=== PATIENT | male | born 1985 | race Caucasian/White ===

== ENCOUNTER 2022-05-01 06:30 | Day surgery (SDC) | payer BC, SELFPAY ==
[2022-04-29 14:32] VITALS: BMI 40.6
[2022-05-01 07:02] VITALS: BP 182/114; PULSE 73; RESP 16; TEMP 36.4; O2SAT 97
[2022-05-01] MEDS: sodium chloride 0.9% 1,000 ML 30 ML IV (07:17)
--- NOTE | 2022-05-01 08:24 | ANES.PREANE2 ---
Pre-Anesthetic Assessment Height/Weight: Height 1.83 m Weight 136.078 kg Temp Pulse Resp BP Pulse Ox 97.5 F L 73 16 182/114 97 05/01/22 07:02 05/01/22 07:02 05/01/22 07:02 05/01/22 07:02 05/01/22 07:02 Preop Diagnosis: diagnostic Operation Date: 05/01/22 08:15 Proposed Procedures p Colonoscopy 95628/k92.1(Not Applicable) - Talon Leigh MD Familial anesthetic complications: None Was Beta Galileo taken within 24 hours: N/A Was Clonidine taken within 24 hours: N/A Last intake: Intake Last Liquid Date 04/30/22 Last Liquid Time 21:00 Last Solid Date 04/29/22 Last Solid Time 18:00 Social Alcohol and Tobacco (chews) Exam alert, oriented x 3, clear to auscultation bilaterally and regular rate & rhythm Airway Submandibular: within normal limits Cervical ROM: within normal limits Mallampati: Class II Dentition: full Comments: Comments: Barker Metabolic Morbid Obesity Anesthetic Plan ASA status: 2 Anesthesia: MAC Medications/Allergies Home Medications Medication Instructions Recorded Confirmed Last Taken Type No Known Home Medications 06/01/21 04/29/22 Unknown History Allergies Allergy/AdvReac Type Severity Reaction Status Date / Time No Known Allergies Allergy Verified 03/15/22 11:29 Current Medications Generic Name Dose Route Start Last Admin Trade Name Freq PRN Reason Stop Dose Admin Sodium Chloride 1,000 mls @ 30 mls/hr 05/01/22 06:45 05/01/22 07:17 Sodium Chloride 0.9% IV 05/02/22 06:44 30 mls/hr .Q24H KAL Administration PFSH Anesthesia Medical History History of benign thymus tumor Lupus Myasthenia gravis Surgical History History of thymectomy Family History Denies family history of Diabetes CAD (coronary artery disease) Clotting disorder Bleeding disorder Cancer Hypertension Stroke Social History Smoking and tobacco status: current every day smoker smokeless tobacco Smokeless tobacco user: chewing tobacco Smokeless tobacco details: can per day x 15 yrs Second hand smoke exposure: No Alcohol intake: current Alcohol intake frequency: 3 or more drinks per day Alcohol type: beer Lives independently: Yes Household members: spouse and children Marital status: service: No Current occupational status: employed History of recent travel: No Special roxana needs: No Agree to transfusion: Yes Data Anesthesia Cardiac Studies: No Data to Display
--- NOTE | 2022-05-01 08:24 | ANES.PREANE2 ---
Pre-Anesthetic Assessment Height/Weight: Height 1.83 m Weight 136.078 kg Temp Pulse Resp BP Pulse Ox 97.5 F L 73 16 182/114 97 05/01/22 07:02 05/01/22 07:02 05/01/22 07:02 05/01/22 07:02 05/01/22 07:02 Preop Diagnosis: diagnostic Operation Date: 05/01/22 08:15 Proposed Procedures p Colonoscopy 30902/k92.1(Not Applicable) - Talon Leigh MD Familial anesthetic complications: none Was Beta Galileo taken within 24 hours: N/A Was Clonidine taken within 24 hours: N/A Last intake: Intake Last Liquid Date 04/30/22 Last Liquid Time 21:00 Last Solid Date 04/29/22 Last Solid Time 18:00 Social Alcohol and Tobacco Exam alert, oriented x 3, clear to auscultation bilaterally and regular rate & rhythm Airway Mallampati: Class IV Dentition: full Comments: Comments: full pascual large neck tongue Pulmonary None reported CV/HEM None reported None reported Hepatic None reported GI Gastroesophageal Reflux Disease Metabolic Morbid Obesity [facility] [place] None reported Neuropsych None reported Anesthetic Plan ASA status: 2 Anesthesia: MAC Risk of > 500 ml blood loss (7ml/kg in children): No Medications/Allergies Home Medications Medication Instructions Recorded Confirmed Last Taken Type No Known Home Medications 06/01/21 04/29/22 Unknown History Allergies Allergy/AdvReac Type Severity Reaction Status Date / Time No Known Allergies Allergy Verified 03/15/22 11:29 Current Medications Generic Name Dose Route Start Last Admin Trade Name Freq PRN Reason Stop Dose Admin Sodium Chloride 1,000 mls @ 30 mls/hr 05/01/22 06:45 05/01/22 07:17 Sodium Chloride 0.9% IV 05/02/22 06:44 30 mls/hr .Q24H KAL Administration PFSH Anesthesia Medical History History of benign thymus tumor Lupus Myasthenia gravis Surgical History History of thymectomy Family History Denies family history of Diabetes CAD (coronary artery disease) Clotting disorder Bleeding disorder Cancer Hypertension Stroke Social History Smoking and tobacco status: current every day smoker smokeless tobacco Smokeless tobacco user: chewing tobacco Smokeless tobacco details: can per day x 15 yrs Second hand smoke exposure: No Alcohol intake: current Alcohol intake frequency: 3 or more drinks per day Alcohol type: beer Lives independently: Yes Household members: spouse and children Marital status: service: No Current occupational status: employed History of recent travel: No Special roxana needs: No Agree to transfusion: Yes Data Anesthesia Cardiac Studies: No Data to Display
--- NOTE | 2022-05-01 08:28 | W.PM.OPSFHP ---
Same Day Surgery H&P Indication for Procedure/HPI DATE OF PROCEDURE: May 01, 2022 CHIEF COMPLAINT/INDICATIONFOR SURGICAL PROCEDURE: hematochezia/LLQ pain PREOP DIAGNOSIS: diagnostic PLANNED PROCEDURE: Operation Date: 05/01/22 08:15 Proposed Procedures p Colonoscopy 09148/k92.1(Not Applicable) - Talon Leigh MD Medications/Allergies* Home Medications Medication Instructions Recorded Confirmed Type No Known Home Medications 06/01/21 04/29/22 History Allergies/Adverse Reactions Allergy/AdvReac Type Severity Reaction Status Date / Time No Known Allergies Allergy Verified 03/15/22 11:29 Current Medications: Generic Name Dose Route Start Last Admin Trade Name Freq PRN Reason Stop Dose Admin Sodium Chloride 1,000 mls @ 30 mls/hr 05/01/22 06:45 05/01/22 07:17 Sodium Chloride 0.9% IV 05/02/22 06:44 30 mls/hr .Q24H KAL Administration Pertinent History/Comorbid Conditions* Medical History (Updated 03/15/22 @ 11:48 by Talon Leigh MD) History of benign thymus tumor Lupus Myasthenia gravis Surgical History (Updated 03/15/22 @ 11:48 by Talon Leigh MD) History of thymectomy Family History (Updated 06/01/21 @ 08:20 by Ariana Dee LPN, RT) Denies family history of Diabetes CAD (coronary artery disease) Clotting disorder Bleeding disorder Cancer Hypertension Stroke Social History Smoking and tobacco status: current every day smoker smokeless tobacco Smokeless tobacco user: chewing tobacco Smokeless tobacco details: can per day x 15 yrs Second hand smoke exposure: No Alcohol intake: current Alcohol intake frequency: 3 or more drinks per day Alcohol type: beer Lives independently: Yes Household members: spouse and children Marital status: service: No Current occupational status: employed History of recent travel: No Special roxana needs: No Agree to transfusion: Yes Pertinent Exam Findings alert, oriented x 3 and regular rate & rhythm Recommendations Surgery/Procedure today Coding Level of Care Code Acute Supervisory Investigative Specialist for Vivek Maharaj
[2022-05-01 08:58] VITALS: BP 157/106; PULSE 87; RESP 16; O2SAT 96
[2022-05-01 09:09] VITALS: BP 166/99; PULSE 79; RESP 16; O2SAT 96
[2022-05-01 10:44] LABS: Basophils % 0.4 %; Eosinophils # 0.2 10^3/uL (0.0-0.8); Eosinophils % 2.2 %; Hematocrit 51.6 % (42.0-52.0); Hemoglobin 16.7 g/dL (11.7-16.6); Lymphocytes # 1.6 10^3/uL (0.8-4.8); Lymphocytes % 18.1 %; Mean Corpuscular HGB Conc 32.4 g/dL (30.0-36.0); Mean Corpuscular Hemoglobin 29.2 pg (28.0-34.0); Mean Corpuscular Volume 90.2 fl (80-94); Mean Platelet Volume 8.6 fL (7.4-10.4); Monocytes # 0.8 10^3/uL (0.2-0.9); Monocytes % 8.4 %; Neutrophils # 6.33 10^3/uL (1.8-7.7); Neutrophils % 70.6 %; Nucleated Red Blood Cells % 0 %; Platelet Count 374 10^3/cmm (130-400); Red Blood Count 5.72 10^6/uL (4.1-5.3); Red Cell Distribution Width 12.7 % (12.1-15.1)
[2022-05-01 11:08] LABS: Carcinoembryonic Antigen 1.1 ng/mL (0.0-4.7)
--- NOTE | 2022-05-01 14:21 | ANE.PACU2 ---
Inpatient post-anesthesia follow up: Airway intact: Yes Vital signs: Temperature 97.5 F Pulse Rate 79 Respiratory Rate 16 Blood Pressure 166/99 Pulse Oximetry 96 Oxygen Delivery Me thod Room Air Oxygen Flow Rate Fraction of Inspir ed Oxygen Hydration adequate: Yes Nausea and vomiting: No Pain level: 1 Mental status: Baseline
[2022-05-07 10:44] LABS: Miscellaneous Test See Scanned Lab Rpt
== END 2022-05-01 10:00 | disposition home or self-care (01) ==
PROVIDERS: PCP Nurse Practitioner Family; Visit Provider Surgery
PROC: 0DJD8ZZ Inspection of Lower Intestinal Tract, Via Natural or Artificial Opening Endoscopic (ICD-10-PCS; CPT 45378; principal; 2022-05-01 08:15)
DX: K92.1 Melena (principal); D12.5 Benign neoplasm of sigmoid colon; K64.8 Other hemorrhoids; K21.9 Gastro-esophageal reflux disease without esophagitis; E66.01 Morbid (severe) obesity due to excess calories; Z68.41 Body mass index [BMI] 40.0-44.9, adult; F17.220 Nicotine dependence, chewing tobacco, uncomplicated
CPT/HCPCS: 36415; 45380; 45381; 82378; 85025; 88305; 88341; 88342; J2704; J7030

== ENCOUNTER 2022-05-08 13:18 | Outpatient (CLI) | payer BC, SELFPAY ==
--- NOTE | 2022-05-08 15:30 | CT_ITS ---
WS: [id number] CT ABDOMEN PELVIS TECHNIQUE: Contrast-enhanced CT of the abdomen and pelvis with coronal and sagittal reformatted image s. CLINICAL INFORMATION: K63.89 - Other specified diseases of intestine COMPARISON: None. DLP: 1374.[address] scans at [facility] use at least one of these dose optimization techniques: automated e xposure control; mA and/or kV adjustment per patient size (includes targeted exams where dose is matc hed to clinical indication); or iterative reconstruction. FINDINGS: Fatty infiltration of the liver. Normal portal vein and splenic vein. Normal gallbladder. GE junction . Density food products stomach. Lung bases are well aerated. Fatty atrophy of the pancreas. No metas tatic lesions in the liver. Normal spleen. Adrenal glands are normal. Normal renal parenchymal enhanc ement. No hydronephrosis. Normal caliber abdominal aorta. Normal celiac and SMA. Retroaortic LEFT deb al vein. Circumferential short segment sigmoid colon thickening and luminal narrowing compatible with recently diagnosed colon cancer. This involves approximately 5 cm sigmoid colon. Small amount of surrounding induration and mesenteric vascular engorgement with numerous surrounding lymph nodes the largest dena uring 9 mm. Sigmoid diverticulosis. Normal appendix in the RIGHT lower quadrant. No free fluid in the pelvis. Sma ll fat-containing RIGHT inguinal hernia. CT/CT abdomen pelvis w con* [id number] IMPRESSION: 1. Circumferential wall thickening involving the sigmoid colon in the mid pelv is with luminal narrowing compatible with recent diagnosis of sigmoid colon car cinoma 2. Surrounding induration with vascular engorgement suspicious for extramural vascular invasion. 3. Numerous suspicious surrounding lymph nodes the largest lymph node measures 8 mm adjacent. Numerous smaller adjacent subcentimeter lymph nodes. 4. No evidence of distant parenchymal disease. No hepatic lesions. 5. Diffuse fatty infiltration of the liver. 6. No other suspicious findings.
[2022-05-08] MEDS: iohexol 300 mg/mL 100 mL Btl IV (15:32)
[2022-05-08] MEDS: barium sulfate 450 mL Oral Susp PO (15:32)
== END 2022-05-08 13:19 | disposition home or self-care (01) ==
LOC: RAD 13:18
PROVIDERS: PCP Nurse Practitioner Family; Visit Provider Surgery
DX: K63.89 Other specified diseases of intestine (principal); C18.7 Malignant neoplasm of sigmoid colon; K76.0 Fatty (change of) liver, not elsewhere classified
CPT/HCPCS: 74177

== ENCOUNTER 2022-07-15 11:57 | Oncology outpatient (recurring) (ONCR) | payer BC, SELFPAY | END 2022-07-17 23:59 | disposition home or self-care (01) | PROVIDERS: PCP Nurse Practitioner Family; Visit Provider Internal Medicine Medical Oncology | DX: C18.7 Malignant neoplasm of sigmoid colon (principal) ==

== ENCOUNTER 2022-08-15 11:51 | Oncology outpatient (recurring) (ONCR) | payer BC, SELFPAY ==
[2022-08-15 13:04] LABS: Basophils % 0.5 %; Eosinophils # 0.2 10^3/uL (0.0-0.8); Eosinophils % 2.2 %; Hematocrit 45.6 % (42.0-52.0); Hemoglobin 15.1 g/dL (11.7-16.6); Lymphocytes # 1.8 10^3/uL (0.8-4.8); Lymphocytes % 20.8 %; Mean Corpuscular HGB Conc 33.1 g/dL (30.0-36.0); Mean Corpuscular Hemoglobin 29.7 pg (28.0-34.0); Mean Corpuscular Volume 89.6 fl (80-94); Mean Platelet Volume 8.5 fL (7.4-10.4); Monocytes # 0.8 10^3/uL (0.2-0.9); Monocytes % 8.8 %; Neutrophils # 5.72 10^3/uL (1.8-7.7); Neutrophils % 67.2 %; Nucleated Red Blood Cells % 0 %; Platelet Count 352 10^3/cmm (130-400); Red Blood Count 5.09 10^6/uL (4.1-5.3); Red Cell Distribution Width 12.9 % (12.1-15.1); White Blood Count 8.5 10^3/uL (4.0-10.0)
[2022-08-15 13:42] LABS: Carcinoembryonic Antigen 0.8 ng/mL (0.0-4.7)
[2022-08-15 13:56] LABS: Alanine Aminotransferase 42 U/L (0-41); Albumin Level 4.3 g/dL (3.5-5.2); Alkaline Phosphatase 86 U/L (40-130); Anion Gap 16.1 (5-19); Aspartate Amino Transferase 24 U/L (0-40); Blood Urea Nitrogen 13 mg/dL (6-20); Calcium 9.4 mg/dL (8.5-10.5); Carbon Dioxide 25 mmol/L (22-29); Chloride 102 mmol/L (98-107); Globulin 2.9 g/dL (1.3-4.6); Glucose 89 mg/dL (65-115); Osmolality Calculated 288 mOsm/kg (285-295); Potassium 4.1 mmol/L (3.5-5.1); Sodium 139 mmol/L (136-145); Total Bilirubin 0.3 mg/dL (0.15-1.2); Total Protein 7.2 g/dL (6.6-8.7)
== END 2022-08-16 23:59 | disposition home or self-care (01) ==
PROVIDERS: Internal Medicine Hematology & Oncology; PCP Nurse Practitioner Family; Visit Provider Internal Medicine Medical Oncology
DX: C18.7 Malignant neoplasm of sigmoid colon (principal)
CPT/HCPCS: 36415; 80053; 82378; 85025

== ENCOUNTER 2022-11-21 14:20 | Oncology outpatient (recurring) (ONCR) | payer BC, SELFPAY ==
[2022-11-21 15:27] LABS: Basophils # 0.1 10^3/uL (0.0-0.1); Basophils % 0.6 %; Eosinophils # 0.2 10^3/uL (0.0-0.8); Eosinophils % 2.1 %; Hematocrit 46.5 % (42.0-52.0); Hemoglobin 15.2 g/dL (11.7-16.6); Lymphocytes # 2.1 10^3/uL (0.8-4.8); Lymphocytes % 24.3 %; Mean Corpuscular HGB Conc 32.7 g/dL (30.0-36.0); Mean Corpuscular Hemoglobin 29.5 pg (28.0-34.0); Mean Corpuscular Volume 90.1 fl (80-94); Mean Platelet Volume 8.5 fL (7.4-10.4); Monocytes # 0.8 10^3/uL (0.2-0.9); Monocytes % 9.1 %; Neutrophils # 5.38 10^3/uL (1.8-7.7); Neutrophils % 63.5 %; Nucleated Red Blood Cells % 0 %; Platelet Count 336 10^3/cmm (130-400); Red Blood Count 5.16 10^6/uL (4.1-5.3); Red Cell Distribution Width 12.6 % (12.1-15.1); White Blood Count 8.5 10^3/uL (4.0-10.0)
[2022-11-21 16:08] LABS: Carcinoembryonic Antigen 0.9 ng/mL (0.0-4.7)
[2022-11-21 16:21] LABS: Alanine Aminotransferase 51 U/L (0-41); Albumin Level 4.3 g/dL (3.5-5.2); Alkaline Phosphatase 86 U/L (40-130); Aspartate Amino Transferase 28 U/L (0-40); Blood Urea Nitrogen 16 mg/dL (6-20); Calcium 9.3 mg/dL (8.5-10.5); Carbon Dioxide 23 mmol/L (22-29); Chloride 104 mmol/L (98-107); Globulin 3.2 g/dL (1.3-4.6); Glomerular Filtration Rate 128.3 mL/min (90-130); Glucose 103 mg/dL (65-115); Osmolality Calculated 293 mOsm/kg (285-295); Sodium 141 mmol/L (136-145); Total Bilirubin 0.2 mg/dL (0.15-1.2); Total Protein 7.5 g/dL (6.6-8.7)
[2022-11-21 16:25] LABS: Anion Gap 18.1 (5-19); Potassium 4.1 mmol/L (3.5-5.1)
== END 2022-12-17 23:59 | disposition home or self-care (01) ==
LOC: ONCMED 14:21
PROVIDERS: Internal Medicine Hematology & Oncology; PCP Nurse Practitioner Family; Visit Provider Internal Medicine Medical Oncology
DX: C18.7 Malignant neoplasm of sigmoid colon (principal)
CPT/HCPCS: 36415; 80053; 82378; 85025

== ENCOUNTER 2023-01-13 07:30 | Outpatient (CLI) | payer BC, SELFPAY ==
--- NOTE | 2023-01-13 09:30 | CT_ITS ---
WS: [id number] CT ABDOMEN AND PELVIS WITH CONTRAST HISTORY: Lower abdominal pain, history of colon cancer. TECHNIQUE: Imaging performed of the abdomen and pelvis with IV contrast. Single phase imaging of the abdomen. Coronal and sagittal reformats are submitted. All CT scans at [facility] use at [address] one of these dose optimization techniques: automated exposure control; mA and/or kV adjustment per patient size (includes targeted exams where dose is matched to clinical indication); or iterative re construction. IV CONTRAST: Omnipaque 350; 100 mL IV. Oral contrast: Yes. DLP: 1435.74 mGy.cm COMPARISON: 05/08/2022 Lower thorax: Lung bases are clear. Heart is normal size. No hiatal hernia. Liver/biliary system: Diffuse low attenuation from hepatic steatosis. No mass identified. No bile michelle t dilatation. Normal portal vein. Gallbladder: Normal. No gallstones or wall thickening. No pericholecystic fluid. Pancreas: Mild fatty replacement. No pancreatic duct dilatation or mass. Spleen: Normal size spleen. No mass or infarct. Adrenal glands: Normal. Right kidney: Normal. Left kidney: Normal. Aorta: Normal size aorta. Normal enhancement of the mesenteric arteries. LEFT renal vein is retroaort ic. Lymphadenopathy: None. Free fluid: None. GI tract: Minimal distention of the stomach. No small bowel obstruction or wall thickening. No append icitis. No colon obstruction. Anastomotic sutures at the rectosigmoid region are identified. There is very mild asymmetric wall thickening near the suture line. RIGHT lateral colonic wall is 8 mm and gr eater than the LEFT. Best seen on the axial imaging. No adjacent lymph nodes. Abdominal wall: Unremarkable abdominal wall. No hernia. Pelvis: No free fluid or adenopathy within the pelvis. Bones: Mild disc space narrowing at L5-S1. CT/CT abdomen pelvis w con* [id number] IMPRESSION: 1. Very minimal asymmetric wall thickening at the rectosigmoid anastomotic sit e. RIGHT lateral colonic wall thickening to 8 mm. Recommend evaluation by colon oscopy or short-term postcontrast CT follow-up, 3 months. This is very focal wi th limited soft tissue thickening. No adjacent ascites or adenopathy. 2. Hepatic steatosis. 3. No hepatic or adrenal metastasis. 4. Fatty replacement of the pancreas.
[2023-01-13] MEDS: iohexol 350 mg/mL 500 mL Btl (per mL) PO (10:10)
[2023-01-13] MEDS: iohexol 350 mg/mL 500 mL Btl (per mL) IV (10:10)
== END 2023-01-13 07:31 | disposition home or self-care (01) ==
PROVIDERS: PCP Nurse Practitioner Family; Visit Provider Internal Medicine Hematology & Oncology
DX: R10.30 Lower abdominal pain, unspecified (principal); Z85.038 Personal history of other malignant neoplasm of large intestine
CPT/HCPCS: 74177; Q9967

== ENCOUNTER 2023-08-05 13:13 | Oncology outpatient (recurring) (ONCR) | payer BC, SELFPAY ==
[2023-08-05 13:20] VITALS: BP 128/81; PULSE 82; RESP 16; TEMP 36.7; O2SAT 95
[2023-08-05 13:36] LABS: Basophils % 0.5 %; Eosinophils # 0.1 10^3/uL (0.0-0.8); Eosinophils % 1.4 %; Hematocrit 43.3 % (37-53); Lymphocytes # 1.8 10^3/uL (0.8-4.8); Lymphocytes % 21.6 %; Mean Corpuscular HGB Conc 33.5 g/dL (30-55); Mean Corpuscular Hemoglobin 30.1 pg (27-33); Mean Platelet Volume 8.4 fL (7.4-10.4); Monocytes # 0.8 10^3/uL (0.2-0.9); Neutrophils # 5.48 10^3/uL (1.8-7.7); Neutrophils % 66.1 %; Nucleated Red Blood Cells % 0 %; Platelet Count 321 10^3/cmm (157-399); Red Blood Count 4.81 10^6/uL (3.85-5.65); Red Cell Distribution Width 12.9 % (12.1-15.1); White Blood Count 8.29 10^3/uL (3.29-11.43)
[2023-08-05 14:01] LABS: Carcinoembryonic Antigen 0.6 ng/mL (0.0-4.7)
[2023-08-05 14:14] LABS: Alanine Aminotransferase 60 U/L (0-41); Albumin Level 4.3 g/dL (3.5-5.2); Alkaline Phosphatase 83 U/L (40-130); Anion Gap 14.4 (5-19); Aspartate Amino Transferase 32 U/L (0-40); Blood Urea Nitrogen 12 mg/dL (6-20); Calcium 8.9 mg/dL (8.5-10.5); Carbon Dioxide 25 mmol/L (22-29); Chloride 107 mmol/L (98-107); Globulin 2.9 g/dL (1.3-4.6); Glomerular Filtration Rate 95.5 mL/min (90-130); Glucose 119 mg/dL (65-115); Osmolality Calculated 295 mOsm/kg (285-295); Potassium 4.4 mmol/L (3.5-5.1); Sodium 142 mmol/L (136-145); Total Bilirubin 0.3 mg/dL (0.15-1.2); Total Protein 7.2 g/dL (6.6-8.7)
[2023-08-05 17:19] LABS: 25 Hydroxy Vitamin D 36 ng/mL (30-100); Thyroid Stimulating Hormone 1.31 uIU/mL (0.27-4.20); Vitamin B12 531 pg/mL (232-1245)
== END 2023-08-16 23:59 | disposition home or self-care (01) ==
PROVIDERS: Nurse Practitioner Family; PCP Nurse Practitioner Family; Visit Provider Internal Medicine Medical Oncology
DX: C18.7 Malignant neoplasm of sigmoid colon (principal); R53.83 Other fatigue; I10 Essential (primary) hypertension
CPT/HCPCS: 36415; 80053; 82306; 82378; 82607; 84443; 85025

== ENCOUNTER 2023-08-27 12:00 | Outpatient (CLI) | payer BC, SELFPAY | END 2023-08-27 12:01 | disposition home or self-care (01) | LOC: SLEEP 08-28 12:41 | PROVIDERS: PCP Nurse Practitioner Family; Visit Provider Nurse Practitioner Family | DX: G47.10 Hypersomnia, unspecified (principal); G47.33 Obstructive sleep apnea (adult) (pediatric); G47.36 Sleep related hypoventilation in conditions classified elsewhere | CPT/HCPCS: G0399 ==

== ENCOUNTER 2023-12-02 13:15 | Oncology outpatient (recurring) (ONCR) | payer BC, SELFPAY ==
[2023-12-02 13:55] VITALS: BP 152/83; PULSE 79; RESP 16; TEMP 36.7; O2SAT 98
[2023-12-02 14:06] LABS: Basophils # 0.1 10^3/uL (0.0-0.1); Basophils % 0.5 %; Eosinophils # 0.1 10^3/uL (0.0-0.8); Eosinophils % 0.7 %; Hematocrit 44.7 % (37-53); Lymphocytes # 1.9 10^3/uL (0.8-4.8); Lymphocytes % 20.3 %; Mean Corpuscular HGB Conc 32.9 g/dL (30-55); Mean Corpuscular Hemoglobin 29.5 pg (27-33); Mean Corpuscular Volume 89.6 fl (82-101); Mean Platelet Volume 8.4 fL (7.4-10.4); Monocytes # 0.9 10^3/uL (0.2-0.9); Monocytes % 9.8 %; Neutrophils # 6.41 10^3/uL (1.8-7.7); Neutrophils % 68.4 %; Nucleated Red Blood Cells % 0 %; Platelet Count 402 10^3/cmm (157-399); Red Blood Count 4.99 10^6/uL (3.85-5.65); Red Cell Distribution Width 12.8 % (12.1-15.1); White Blood Count 9.38 10^3/uL (3.29-11.43)
[2023-12-02 14:36] LABS: Carcinoembryonic Antigen 0.7 ng/mL (0.0-4.7)
[2023-12-02 14:47] LABS: Alanine Aminotransferase 34 U/L (0-41); Albumin Level 4.1 g/dL (3.5-5.2); Alkaline Phosphatase 72 U/L (40-130); Aspartate Amino Transferase 17 U/L (0-40); Blood Urea Nitrogen 11 mg/dL (6-20); Calcium 9.5 mg/dL (8.5-10.5); Carbon Dioxide 25 mmol/L (22-29); Chloride 104 mmol/L (98-107); Globulin 3.4 g/dL (1.3-4.6); Glomerular Filtration Rate 152.4 mL/min (90-130); Glucose 102 mg/dL (65-115); Osmolality Calculated 292 mOsm/kg (285-295); Sodium 141 mmol/L (136-145); Total Bilirubin 0.5 mg/dL (0.15-1.2); Total Protein 7.5 g/dL (6.6-8.7)
== END 2023-12-17 23:59 | disposition home or self-care (01) ==
PROVIDERS: Internal Medicine Medical Oncology; PCP Nurse Practitioner Family; Visit Provider Internal Medicine Medical Oncology
DX: C18.7 Malignant neoplasm of sigmoid colon (principal); Z90.49 Acquired absence of other specified parts of digestive tract; Z79.899 Other long term (current) drug therapy
CPT/HCPCS: 36415; 80053; 82378; 85025

== ENCOUNTER 2023-12-31 10:14 | Outpatient (CLI) | payer BC, SELFPAY ==
[2023-12-31] MEDS: iohexol 350 mg/mL 500 mL Btl (per mL) PO (10:47)
--- NOTE | 2023-12-31 11:00 | CT_ITS ---
WS: [id number] CT ABDOMEN AND PELVIS WITH CONTRAST HISTORY: surveillance, colon cancer TECHNIQUE: Imaging performed of the abdomen and pelvis with IV contrast. Single phase imaging of the abdomen. Coronal and sagittal reformats are submitted. All CT scans at [facility] use at [address] one of these dose optimization techniques: automated exposure control; mA and/or kV adjustment per patient size (includes targeted exams where dose is matched to clinical indication); or iterative re construction. IV CONTRAST: Omnipaque 350; 100 mL IV. Oral contrast: Yes. DLP: 1445.42 mGy.cm COMPARISON: 01/13/2023 Lower thorax: Lung bases are clear. Heart is normal size. No hiatal hernia. Liver/biliary system: Mild hepatic steatosis. No metastatic disease or mass. No bile duct dilatation. Normal portal vein. Gallbladder: Mildly contracted gallbladder. No adjacent inflammation. Pancreas: Mild diffuse fatty replacement. No mass. Spleen: Normal size spleen. No mass or infarct. Adrenal glands: Normal. Right kidney: Normal. Left kidney: Normal. Aorta: Normal. Lymphadenopathy: None. Free fluid: None. GI tract: Normally distended stomach. No small bowel obstruction. Normal appendix. There are a few di verticula in the distal colon. Rectosigmoid anastomosis is stable. There is no stricture or asymmetri c wall thickening. Abdominal wall: Unremarkable abdominal wall. No hernia. Pelvis: No free fluid or adenopathy within the pelvis. Bones: Unremarkable. IMPRESSION: 1. Stable rectosigmoid anastomosis. No recurrent mass and no adenopathy. 2. No metastatic lesions within the liver or adrenal glands. 3. Mild fatty replacement of the pancreas. 4. 1 mild hepatic steatosis.
== END 2023-12-31 10:15 | disposition home or self-care (01) ==
LOC: RAD 10:14
PROVIDERS: PCP Nurse Practitioner Family; Visit Provider Nurse Practitioner Family
DX: C18.7 Malignant neoplasm of sigmoid colon (principal); Z98.0 Intestinal bypass and anastomosis status; K86.89 Other specified diseases of pancreas; K76.0 Fatty (change of) liver, not elsewhere classified
CPT/HCPCS: 74177; Q9967

== ENCOUNTER 2024-06-01 10:43 | Oncology outpatient (recurring) (ONCR) | payer BC, SELFPAY ==
[2024-06-01 11:24] LABS: Basophils % 0.4 %; Eosinophils # 0.2 10^3/uL (0.0-0.8); Hematocrit 44.8 % (37-53); Lymphocytes % 26.8 %; Mean Corpuscular HGB Conc 33.5 g/dL (30-55); Mean Corpuscular Hemoglobin 30.3 pg (27-33); Mean Corpuscular Volume 90.5 fl (82-101); Mean Platelet Volume 8.2 fL (7.4-10.4); Monocytes # 0.7 10^3/uL (0.2-0.9); Monocytes % 9.3 %; Neutrophils # 4.57 10^3/uL (1.8-7.7); Neutrophils % 61.1 %; Nucleated Red Blood Cells % 0 %; Platelet Count 317 10^3/cmm (157-399); Red Blood Count 4.95 10^6/uL (3.85-5.65); Red Cell Distribution Width 12.8 % (12.1-15.1); White Blood Count 7.49 10^3/uL (3.29-11.43)
[2024-06-01 11:47] LABS: Carcinoembryonic Antigen 0.6 ng/mL (0.0-4.7)
[2024-06-01 11:59] LABS: Alanine Aminotransferase 49 U/L (0-41); Alkaline Phosphatase 67 U/L (40-130); Aspartate Amino Transferase 25 U/L (0-40); Blood Urea Nitrogen 11 mg/dL (6-20); Calcium 8.9 mg/dL (8.5-10.5); Carbon Dioxide 21 mmol/L (22-29); Chloride 105 mmol/L (98-107); Glomerular Filtration Rate 126.9 mL/min (90-130); Glucose 94 mg/dL (65-115); Osmolality Calculated 289 mOsm/kg (285-295); Sodium 140 mmol/L (136-145); Total Bilirubin 0.3 mg/dL (0.15-1.2)
== END 2024-06-16 23:59 | disposition home or self-care (01) ==
PROVIDERS: Nurse Practitioner Family; PCP Nurse Practitioner Family; Visit Provider Internal Medicine Medical Oncology
DX: C18.7 Malignant neoplasm of sigmoid colon (principal)
CPT/HCPCS: 36415; 80053; 82378; 85025

== ENCOUNTER 2024-12-01 11:14 | Oncology outpatient (recurring) (ONCR) | payer BC, SELFPAY ==
[2024-12-01 12:03] LABS: Basophils % 0.5 %; Eosinophils # 0.1 10^3/uL (0.0-0.8); Eosinophils % 1.3 %; Hematocrit 44.3 % (37-53); Lymphocytes # 1.7 10^3/uL (0.8-4.8); Lymphocytes % 19.6 %; Mean Corpuscular HGB Conc 35.4 g/dL (30-55); Mean Corpuscular Hemoglobin 31.5 pg (27-33); Mean Corpuscular Volume 88.8 fl (82-101); Mean Platelet Volume 8.5 fL (7.4-10.4); Monocytes # 0.7 10^3/uL (0.2-0.9); Monocytes % 7.8 %; Neutrophils # 6.19 10^3/uL (1.8-7.7); Neutrophils % 70.5 %; Nucleated Red Blood Cells % 0 %; Platelet Count 342 10^3/cmm (157-399); Red Blood Count 4.99 10^6/uL (3.85-5.65); Red Cell Distribution Width 12.5 % (12.1-15.1); White Blood Count 8.77 10^3/uL (3.29-11.43)
[2024-12-01 12:27] LABS: Carcinoembryonic Antigen 0.6 ng/mL (0.0-4.7)
[2024-12-01 12:38] LABS: Alanine Aminotransferase 38 U/L (0-41); Alkaline Phosphatase 76 U/L (40-130); Anion Gap 17.1 (5-19); Aspartate Amino Transferase 23 U/L (0-40); Blood Urea Nitrogen 15 mg/dL (6-20); Carbon Dioxide 23 mmol/L (22-29); Chloride 102 mmol/L (98-107); Creatinine Clr Calc Pharmacy 181.5473; Globulin 2.7 g/dL (1.3-4.6); Glomerular Filtration Rate 126.9 mL/min (90-130); Glucose 123 mg/dL (65-115); Osmolality Calculated 288 mOsm/kg (285-295); Potassium 4.1 mmol/L (3.5-5.1); Sodium 138 mmol/L (136-145); Total Bilirubin 0.3 mg/dL (0.15-1.2); Total Protein 6.7 g/dL (6.6-8.7)
== END 2024-12-17 23:59 | disposition home or self-care (01) ==
PROVIDERS: Nurse Practitioner Family; PCP Nurse Practitioner Family; Visit Provider Internal Medicine Medical Oncology
DX: C18.7 Malignant neoplasm of sigmoid colon (principal)
CPT/HCPCS: 36415; 80053; 82378; 85025

== ENCOUNTER 2025-01-06 08:30 | Oncology outpatient (recurring) (ONCR) | payer BC, SELFPAY ==
[2024-12-20 16:34] LABS: Free T4 Free Thyroxine 1.31 ng/dL (0.82-1.77); Thyroid Stimulating Hormone 2.11 uIU/mL (0.27-4.20)
--- NOTE | 2025-01-06 08:30 | CT_ITS ---
WS: [id number] CT CHEST, ABDOMEN AND PELVIS WITH CONTRAST HISTORY: History of colon cancer. TECHNIQUE: Contiguous 5 mm axial imaging performed through the chest, abdomen and pelvis with IV contrast, oral contrast has been provided. Coronal and sagittal reformats chest. Coronal and sagittal reformats through the abdomen and pelvis. All CT scans at [facility] use at least one of these dose optimization techniques: automated exposure control; mA and/or kV adjustment per patient size (includes targeted exams where dose is matched to clinical indication); or iterative reconstruction. CONTRAST: Omnipaque 350; 100 mL IV. DLP: 2326.05 mGy.cm COMPARISON: 12/31/[address]: Lungs are clear and well aerated. No pulmonary mass, pneumonia or nodule. There is a benign calcified granuloma at the lingula. No pericardial or pleural effusions. Heart size is normal. No mediastinal or hilar adenopathy. Normal aorta. Normal size pulmonary artery. Prior CABG. Increased attenuation in the anterior mediastinum at the site of the previously described prominent thymus gland. This may be postsurgical. Abdomen CT: Mild hepatomegaly with hepatic steatosis. No metastatic disease or intrahepatic duct dilatation. Normal portal vein. Normal gallbladder. Normal size spleen with a tiny central cyst. No adrenal mass. Mild fatty replacement of the pancreas. No acute pancreatitis. Normal stomach and small bowel. Mild constipation. Normal appendix. Rectosigmoid anastomosis is reidentified. There is no neoplasm or recurrent mass. No adjacent adenopathy or stricture. No ascites or adenopathy in the abdomen or pelvis. Pelvic CT: Normal appearance of the urinary bladder. Normal prostate gland. Degenerative disc disease and endplate osteophytes at L4 and L5 with foraminal and central stenosis. CT/CT chest abdpel w/*[id number] IMPRESSION: 1. Stable rectosigmoid anastomosis. No recurrent mass or adenopathy. 2. No metastatic disease within the liver or adrenal glands. 3. No metastatic pulmonary nodules. 4. Hepatic steatosis. 5. Prior cholecystectomy.
[2025-01-06] MEDS: iohexol 350 mg/mL 500 mL Btl (per mL) PO (09:09)
[2025-01-06] MEDS: iohexol 350 mg/mL 500 mL Btl (per mL) IV (09:31)
== END 2025-01-14 23:59 | disposition home or self-care (01) ==
LOC: RAD 01-07 → ONCMED 01-10 09:12
PROVIDERS: PCP Nurse Practitioner Family; Visit Provider Nurse Practitioner Family
DX: C18.7 Malignant neoplasm of sigmoid colon (principal)
CPT/HCPCS: 36415; 71260; 74177; 84439; 84443

== ENCOUNTER 2025-05-31 11:50 | Oncology outpatient (recurring) (ONCR) | payer BC, SELFPAY ==
[2025-05-31 12:38] LABS: Hematocrit 44.5 % (37-53); Hemoglobin 15.00 g/dL (11.27-16.99); Mean Corpuscular HGB Conc 33.7 g/dL (30-55); Mean Corpuscular Hemoglobin 29.9 pg (27-33); Mean Corpuscular Volume 88.6 fl (82-101); Nucleated Red Blood Cells % 0 %; Platelet Count 245 10^3/cmm (157-399); Red Blood Count 5.02 10^6/uL (3.85-5.65); White Blood Count 6.29 10^3/uL (3.29-11.43)
[2025-05-31 13:02] LABS: Alanine Aminotransferase 47 U/L (0-41); Albumin Level 4.1 g/dL (3.5-5.2); Alkaline Phosphatase 89 U/L (40-130); Anion Gap 16.3 (5-19); Aspartate Amino Transferase 26 U/L (0-40); Blood Urea Nitrogen 13 mg/dL (6-20); Calcium 9.2 mg/dL (8.5-10.5); Carbon Dioxide 24 mmol/L (22-29); Chloride 106 mmol/L (98-107); Globulin 3.0 g/dL (1.3-4.6); Glucose 86 mg/dL (65-115); Osmolality Calculated 293 mOsm/kg (285-295); Potassium 4.3 mmol/L (3.5-5.1); Sodium 142 mmol/L (136-145); Total Protein 7.1 g/dL (6.6-8.7)
[2025-05-31 13:57] LABS: Carcinoembryonic Antigen 0.6 ng/mL (0.0-4.7)
== END 2025-06-16 23:59 | disposition home or self-care (01) ==
PROVIDERS: PCP Nurse Practitioner Family; Visit Provider Nurse Practitioner Family
DX: C18.7 Malignant neoplasm of sigmoid colon (principal)
CPT/HCPCS: 36415; 80053; 82378; 85025